=== PATIENT | female | born 1965 | race Caucasian/White ===

== ENCOUNTER 2017-04-23 19:41 | Emergency (ER) | payer OTHER ==
[~2017-04-23] VITALS: Ht 167.6 cm; Wt 95.3 kg
[~2017-04-23 19:41] MED LIST: MOTRIN800 MG PO; PRILOSEC40 MG PO; TESSALON PERLE200 MG PO; ZITHROMAX Z PA250 MG PO
[2017-04-23] MEDS ORDERED: INDOMETHACIN50 MG PO (20:17)
== END 2017-04-23 21:53 | disposition home or self-care (01) ==
LOC: ED 19:41
DX: M25.561 Pain in right knee (principal); Z88.0 Allergy status to penicillin; Z79.899 Other long term (current) drug therapy; F17.200 Nicotine dependence, unspecified, uncomplicated

== ENCOUNTER 2017-06-27 16:18 | Emergency (ER) | payer OTHER ==
[~2017-06-27] VITALS: Ht 167.6 cm; Wt 81.6 kg
[~2017-06-27 16:18] MED LIST changes: +INDOMETHACIN50 MG PO
[2017-06-27] MEDS ORDERED: ZOFRAN4 MG PO (16:49)
[2017-06-27] MEDS ORDERED: NAPROSYN500 MG PO (16:49)
[2017-06-27] MEDS ORDERED: CLINDAMYCIN150 MG PO (16:49)
== END 2017-06-27 17:09 | disposition home or self-care (01) ==
LOC: ED 16:18
DX: L03.114 Cellulitis of left upper limb (principal); R03.0 Elevated blood-pressure reading, without diagnosis of hypertension; F17.200 Nicotine dependence, unspecified, uncomplicated; Z88.0 Allergy status to penicillin

== ENCOUNTER 2019-02-18 13:49 | Emergency (ER) | payer OTHER ==
[~2019-02-18] VITALS: Ht 167.6 cm; Wt 104.3 kg
[~2019-02-18 13:49] MED LIST changes: +CLINDAMYCIN150 MG PO; +NAPROSYN500 MG PO; +ZOFRAN4 MG PO
[2019-02-18] MEDS ORDERED: CEPHALEXIN500 M1 PO (14:15)
== END 2019-02-18 14:22 | disposition home or self-care (01) ==
LOC: ED 13:49
DX: S41.111A Laceration without foreign body of right upper arm, initial encounter (principal); Z23 Encounter for immunization; Z88.0 Allergy status to penicillin; Z79.899 Other long term (current) drug therapy; W45.8XXA Other foreign body or object entering through skin, initial encounter; Y93.89 Activity, other specified; Y92.89 Other specified places as the place of occurrence of the external cause; Y99.8 Other external cause status

== ENCOUNTER 2020-01-23 15:59 | Emergency (ER) | payer OTHER ==
[~2020-01-23] VITALS: Ht 167.6 cm; Wt 108.9 kg
[~2020-01-23 15:59] MED LIST changes: +CEPHALEXIN500 M1 PO
[2020-01-23] MEDS ORDERED: CYCLOBENZAPRINE10 MG PO (17:24)
[2020-01-23] MEDS ORDERED: TYLENOL325 M1 PO (17:24)
[2020-01-23] MEDS ORDERED: NAPROSYN500 MG PO (17:24)
== END 2020-01-23 18:01 | disposition home or self-care (01) ==
LOC: ED 15:59
DX: S06.0X9A Concussion with loss of consciousness of unspecified duration, initial encounter (principal); S13.4XXA Sprain of ligaments of cervical spine, initial encounter; S39.012A Strain of muscle, fascia and tendon of lower back, initial encounter; Z88.0 Allergy status to penicillin; Z79.899 Other long term (current) drug therapy; V49.00XA Driver injured in collision with unspecified motor vehicles in nontraffic accident, initial encounter; Y93.89 Activity, other specified; Y92.89 Other specified places as the place of occurrence of the external cause; Y99.8 Other external cause status

== ENCOUNTER 2020-11-16 12:44 | Emergency (ER) | payer SELFPAY ==
[~2020-11-16] VITALS: Wt 113.4 kg
[~2020-11-16 12:44] MED LIST changes: +CYCLOBENZAPRINE10 MG PO; +TYLENOL325 M1 PO
[2020-11-16] MEDS ORDERED: CYCLOBENZAPRINE10 MG PO (15:36)
[2020-11-16] MEDS ORDERED: PREDNISONE50 MG PO (15:37)
[2020-11-16] MEDS ORDERED: HYDROCODONE-AC1 EAC1 PO (16:02)
== END 2020-11-16 15:55 | disposition home or self-care (01) ==
LOC: ED 12:44
DX: S45.911A Laceration of unspecified blood vessel at shoulder and upper arm level, right arm, initial encounter (principal); Z88.0 Allergy status to penicillin; Z79.899 Other long term (current) drug therapy; X58.XXXA Exposure to other specified factors, initial encounter; Y93.89 Activity, other specified; Y92.89 Other specified places as the place of occurrence of the external cause; Y99.8 Other external cause status

== ENCOUNTER 2021-04-23 15:12 | Emergency (ER) | payer SELFPAY ==
[~2021-04-23] VITALS: Wt 115.7 kg
[~2021-04-23 15:12] MED LIST changes: +HYDROCODONE-AC1 EAC1 PO; +PREDNISONE50 MG PO
[2021-04-23 15:32] LABS: BILIRUBIN Negative (Negative); BLOOD 2+ (Negative); CLARITY Cloudy (Clear); COLOR Yellow (Yellow); GLUCOSE Negative (Negative); KETONE Negative (Negative); LEUKO ESTERASE 3+ (Negative); NITRITE Negative (Negative); PH 6.5 (4.5-8.0)
[2021-04-23 15:45] LABS: WBC TNTC wbc/hpf (0-5)
[2021-04-23 15:46] LABS: BACTERIA 2+; RBC TNTC rbc/hpf (0-2)
[2021-04-23] MEDS ORDERED: CEPHALEXIN500 M1 PO (15:52)
[2021-04-23] MEDS ORDERED: PYRIDIUM100 MG PO (15:52)
== END 2021-04-23 15:53 | disposition home or self-care (01) ==
LOC: ED 15:12
PROVIDERS: Nurse Practitioner Family
DX: N39.0 Urinary tract infection, site not specified (principal); Z88.0 Allergy status to penicillin; Z79.899 Other long term (current) drug therapy

== ENCOUNTER 2021-12-19 21:58 | Inpatient (IN) | payer OTHER ==
[~2021-12-19] VITALS: Ht 167.6 cm; Wt 120.7 kg
[~2021-12-19 21:58] MED LIST changes: +PYRIDIUM100 MG PO
[2021-12-19 23:54] LABS: HEMATOCRIT 41.3 % (37.0-47.0); MEAN CELL VOLUME 84.8 fl (81.0-99.0); MEAN CORPUSCULAR HGB 28.5 pg (27.0-31.0); MEAN CORPUSCULAR HGB CONC 33.7 g/dl (33.0-37.0); MEAN PLATELET VOLUME 10.6 fl (9.6-12.3); PLATELET COUNT AUTOMATED 357 10*3/uL (130-400); RED BLOOD COUNT 4.87 10*6/uL (4.10-5.10); RED CELL DISTRI WIDTH 16.2 % (0-14.5); WHITE BLOOD COUNT 25.6 10*3/uL (4.8-10.8)
[2021-12-20] VITALS (12 sets, daily range): BP systolic 92–151; BP diastolic 51–86
[2021-12-20 00:02] LABS: MANUAL DIFF REFLEX YES
[2021-12-20 00:09] LABS: ALKALINE PHOSPHATASE 66 U/L (45-117); BUN 12 mg/dl (7-24); CHLORIDE 102 mmol/L (98-107); CREATININE 0.66 mg/dL (0.55-1.02); LIPASE 74 U/L (73-393); POTASSIUM 3.7 mmol/L (3.5-5.1); SGOT/AST 12 IU/L (3-35); SGPT/ALT 17 U/L (12-78); SODIUM 134 mmol/L (136-145); TOTAL PROTEIN 7.3 gm/dL (6.4-8.2)
[2021-12-20 00:18] LABS: PLATELET SUFFICIENCY NORMAL (NORMAL); TOTAL CELLS COUNTED 100 #CELLS
[2021-12-20 01:58] LABS: BILIRUBIN Negative (Negative); BLOOD 1+ (Negative); CLARITY Clear (Clear); COLOR Yellow (Yellow); GLUCOSE Negative (Negative); KETONE Negative (Negative); LEUKO ESTERASE Negative (Negative); NITRITE Negative (Negative); SPECIFIC GRAVITY >= 1.030 (1.001-1.030); UROBILINOGEN 0.2 E.U./dl (0.0-1.0)
[2021-12-20 02:13] LABS: BACTERIA 1+
[2021-12-20 06:12] LABS: HEMATOCRIT 39.1 % (37.0-47.0); MEAN CELL VOLUME 85.7 fl (81.0-99.0); MEAN CORPUSCULAR HGB 28.5 pg (27.0-31.0); MEAN CORPUSCULAR HGB CONC 33.2 g/dl (33.0-37.0); PLATELET COUNT AUTOMATED 314 10*3/uL (130-400); RED BLOOD COUNT 4.56 10*6/uL (4.10-5.10); RED CELL DISTRI WIDTH 16.4 % (0-14.5); WHITE BLOOD COUNT 20.6 10*3/uL (4.8-10.8)
[2021-12-20 06:14] LABS: ACT PARTIAL THROMBO TIME 26.6 SECONDS (20.0-32.1); INTERNATIONAL NORM RATIO 1.1 (2.0-3.5)
[2021-12-20 06:28] LABS: BUN 10 mg/dl (7-24); CHLORIDE 103 mmol/L (98-107); CREATININE 0.62 mg/dL (0.55-1.02); FREE T4 1.03 ng/dl (0.76-1.46); POTASSIUM 3.6 mmol/L (3.5-5.1); SODIUM 136 mmol/L (136-145)
[2021-12-20 06:32] LABS: MANUAL DIFF REFLEX YES
[2021-12-20 07:30] LABS: ATYPICAL LYMPHS 1 % (0-0); BASOPHILS 1 % (0-1); POLYCHROMASIA SLIGHT; TOTAL CELLS COUNTED 100 #CELLS
[2021-12-20 07:31] LABS: PLATELET SUFFICIENCY NORMAL (NORMAL)
[2021-12-21] VITALS: BP 116/57
[2021-12-21 04:00] VITALS: BP 112/56
[2021-12-21 06:06] LABS: BUN 18 mg/dl (7-24); CHLORIDE 108 mmol/L (98-107); CREATININE 0.72 mg/dL (0.55-1.02); POTASSIUM 3.6 mmol/L (3.5-5.1); SODIUM 138 mmol/L (136-145)
[2021-12-21 06:09] LABS: HEMATOCRIT 41.1 % (37.0-47.0); MEAN CELL VOLUME 87.8 fl (81.0-99.0); MEAN CORPUSCULAR HGB 28.8 pg (27.0-31.0); MEAN CORPUSCULAR HGB CONC 32.8 g/dl (33.0-37.0); MEAN PLATELET VOLUME 11.2 fl (9.6-12.3); PLATELET COUNT AUTOMATED 286 10*3/uL (130-400); RED BLOOD COUNT 4.68 10*6/uL (4.10-5.10); RED CELL DISTRI WIDTH 16.5 % (0-14.5); WHITE BLOOD COUNT 22.7 10*3/uL (4.8-10.8)
[2021-12-21 06:28] LABS: MANUAL DIFF REFLEX YES
[2021-12-21 06:49] LABS: TOTAL CELLS COUNTED 100 #CELLS
[2021-12-21 06:50] LABS: BURR CELLS FEW; PLATELET SUFFICIENCY NORMAL (NORMAL); POLYCHROMASIA SLIGHT; VACUOLATION OF NEUTROPHILS SLIGHT
[2021-12-21 08:00] VITALS: BP 98/52
[2021-12-21 12:00] VITALS: BP 96/79
[2021-12-21 16:00] VITALS: BP 113/52
[2021-12-21 20:00] VITALS: BP 115/50
[2021-12-22] VITALS: BP 105/87
[2021-12-22 05:26] LABS: BUN 20 mg/dl (7-24); CHLORIDE 110 mmol/L (98-107); CREATININE 0.57 mg/dL (0.55-1.02); POTASSIUM 3.6 mmol/L (3.5-5.1); SODIUM 141 mmol/L (136-145)
[2021-12-22 05:57] LABS: BASO % 0.2 % (0.0-1.0); EOS # 0.1 10*3/uL (0.0-0.4); EOS % 0.5 % (1.0-4.0); HEMATOCRIT 35.7 % (37.0-47.0); LYMPH # 1.4 10*3/uL (1.3-4.4); LYMPH % 7.2 % (27.0-41.0); MEAN CELL VOLUME 86.9 fl (81.0-99.0); MEAN CORPUSCULAR HGB 28.2 pg (27.0-31.0); MEAN CORPUSCULAR HGB CONC 32.5 g/dl (33.0-37.0); MEAN PLATELET VOLUME 11.2 fl (9.6-12.3); MONO # 1.4 10*3/uL (0.1-1.0); MONO % 6.9 % (3.0-9.0); NEUT # 16.6 10*3/uL (2.3-7.9); NEUT % 84.3 % (47.0-73.0); PLATELET COUNT AUTOMATED 285 10*3/uL (130-400); RED BLOOD COUNT 4.11 10*6/uL (4.10-5.10); RED CELL DISTRI WIDTH 16.4 % (0-14.5); WHITE BLOOD COUNT 19.7 10*3/uL (4.8-10.8)
[2021-12-22 08:00] VITALS: BP 116/62
[2021-12-22 12:00] VITALS: BP 121/57
[2021-12-22 16:00] VITALS: BP 107/57
[2021-12-22 20:00] VITALS: BP 110/54; BP 83/62
[2021-12-23] VITALS: BP 100/69
[2021-12-23 06:27] LABS: BASO % 0.2 % (0.0-1.0); EOS # 0.4 10*3/uL (0.0-0.4); EOS % 2.7 % (1.0-4.0); LYMPH # 3.2 10*3/uL (1.3-4.4); LYMPH % 22.7 % (27.0-41.0); MEAN CELL VOLUME 86.4 fl (81.0-99.0); MEAN CORPUSCULAR HGB 28.1 pg (27.0-31.0); MEAN CORPUSCULAR HGB CONC 32.6 g/dl (33.0-37.0); MEAN PLATELET VOLUME 11.1 fl (9.6-12.3); MONO # 1.3 10*3/uL (0.1-1.0); NEUT % 64.4 % (47.0-73.0); PLATELET COUNT AUTOMATED 324 10*3/uL (130-400); RED BLOOD COUNT 4.05 10*6/uL (4.10-5.10); RED CELL DISTRI WIDTH 16.4 % (0-14.5)
[2021-12-23 07:28] LABS: ALKALINE PHOSPHATASE 59 U/L (45-117); BUN 13 mg/dl (7-24); CHLORIDE 111 mmol/L (98-107); CREATININE 0.48 mg/dL (0.55-1.02); POTASSIUM 3.2 mmol/L (3.5-5.1); SGOT/AST 8 IU/L (3-35); SGPT/ALT 19 U/L (12-78); SODIUM 142 mmol/L (136-145); TOTAL PROTEIN 5.7 gm/dL (6.4-8.2)
[2021-12-23 08:00] VITALS: BP 119/42
[2021-12-23] MEDS ORDERED: CIPRO500 MG PO (10:56)
[2021-12-23] MEDS ORDERED: METRONIDAZOLE500 M1 PO (10:56)
[2021-12-23] MEDS ORDERED: HYDROCODONE-AC1 EAC1 PO (10:56)
== END 2021-12-23 11:30 | disposition home or self-care (01) | DRG 854 ==
LOC: ED 21:58 → 4E 12-20 02:23 → EDHOLD 12-20 02:23 → 4E 12-20 09:46
PROVIDERS: Emergency Medicine; Hospitalist; Internal Medicine; Student in an Organized Health Care Education/Training Program; ADMIT Student in an Organized Health Care Education/Training Program; ATTEND Student in an Organized Health Care Education/Training Program
PROC: 0D9J4ZZ Drainage of Appendix, Percutaneous Endoscopic Approach (ICD-10-PCS; principal; 2021-12-20)
PROC: 0W9G40Z Drainage of Peritoneal Cavity with Drainage Device, Percutaneous Endoscopic Approach (ICD-10-PCS; 2021-12-20)
PROC: 3E0T3BZ Introduction of Anesthetic Agent into Peripheral Nerves and Plexi, Percutaneous Approach (ICD-10-PCS; 2021-12-20)
PROC: 3E0T33Z Introduction of Anti-inflammatory into Peripheral Nerves and Plexi, Percutaneous Approach (ICD-10-PCS; 2021-12-20)
DX: A41.9 Sepsis, unspecified organism (principal); K35.30 Acute appendicitis with localized peritonitis, without perforation or gangrene; R73.9 Hyperglycemia, unspecified; K21.9 Gastro-esophageal reflux disease without esophagitis; F17.210 Nicotine dependence, cigarettes, uncomplicated; R31.9 Hematuria, unspecified; B96.20 Unspecified Escherichia coli [E. coli] as the cause of diseases classified elsewhere; Z98.51 Tubal ligation status